=== PATIENT | male | born 1945 | race Native Hawaiian/Other Pacific Islander ===

== ENCOUNTER 2020-11-13 14:34 | Outpatient (CLI) | payer OTHER ==
[2020-11-13 15:01] LABS: PLATELET COUNT 262 K/uL (142-355)
[2020-11-13 16:39] LABS: POTASSIUM 4.1 mmol/L (3.6-5.2)
== END 2020-11-13 22:00 | disposition home or self-care (01) ==
LOC: LAB 14:34
PROVIDERS: ATTEND Nurse Practitioner Family
DX: Z00.00 Encounter for general adult medical examination without abnormal findings (principal); I10 Essential (primary) hypertension; I25.10 Atherosclerotic heart disease of native coronary artery without angina pectoris; E55.9 Vitamin D deficiency, unspecified; E53.8 Deficiency of other specified B group vitamins; Z79.899 Other long term (current) drug therapy; R53.83 Other fatigue; R53.81 Other malaise
CPT/HCPCS: 80053; 80061; 82306; 82607; 83036; 84439; 84443; 85027